=== PATIENT | female | born 2000 | race Two or more races ===

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

== ENCOUNTER 2019-12-03 06:00 | Inpatient (IN) | payer OTHER ==
[2019-12-03] MEDS ORDERED: OXYTOCIN 10 UNIT/ML 1 ML VIAL IM PRN (06:26)
[2019-12-03] MEDS ORDERED: CARBOPROST TROMETHAMINE 250 MCG/ML 1 ML AMP IM PRN (06:26)
[2019-12-03] MEDS ORDERED: METHYLERGONOVINE 0.2 MG/ML 1 ML AMP IM PRN (06:26)
[2019-12-03] MEDS ORDERED: TERBUTALINE 1 MG/ML VIAL SQ PRN (06:26)
[2019-12-03] MEDS ORDERED: LIDOCAINE 0.5% (PF) 5 MG/ML (50 ML SDV) SQ PRN (06:26)
[2019-12-03] MEDS ORDERED: OXYTOCIN 30 UNITS/500 ML NS 30 UNIT in SALINE 1 500ML.BAG IV SCH (06:30)
[2019-12-03] MEDS: LACTATED RINGERS 1,000 ML IV SCH ×3 (06:41→13:09)
[2019-12-03 06:51] LABS: WBC 10.4 k/uL (4.0-11.0)
[2019-12-03 06:52] LABS: Basophils % (A) 0 %; Eosinophils # (A) 0.3 k/uL (0-0.7); Eosinophils % (A) 3 %; HCT 37.3 % (34.0-46.0); HGB 12.4 gm/dL (11.4-16.0); Lymphocytes # (A) 2.1 k/uL (1.0-4.8); Lymphocytes % (A) 20 %; MCHC 33.4 g/dL (31.0-37.0); MCV 86.9 fL (80.0-100.0); Mean Platelet Volume 7.2; Monocytes % (A) 10 %; Neutrophils # (A) 6.7 k/uL (1.3-7.7); Neutrophils % (A) 65 %; Platelet Count 335 k/uL (150-450); RBC 4.29 m/uL (3.80-5.40); RDW 12.9 % (11.5-15.5)
[2019-12-03] MEDS ORDERED: BUTORPHANOL 1 MG/ML 1 ML VIAL IV PRN (09:54)
[2019-12-03] MEDS ORDERED: ROPIVACAINE 100 MG, fentaNYL (PF) 200 MCG in SODIUM CHLORIDE 0.9% 76 ML EPIDURAL ONE (12:54)
--- NOTE | 2019-12-03 13:08 | P.HPOB ---
History of Present Illness H&P Date: 12/03/19 Chief Complaint: IUP at 39 1/7 weeks, dilation of the renal pelvis, This is a 19-year-old 1 para 0 that presented to labor and delivery at 39 and one sevenths weeks for planned elective induction of labor. Patient has been receiving routine care with myself which is been essentially uncomplicated. On 20 week ultrasound dilation of the renal pelvis was noted. Growth sounds were completed to 4 weeks along with amniotic fluid index evaluation. Patient has been stable with good growth noted on the fetus, stable growth of the dilation. Review of Systems Constitutional: Denies fatigue, Denies fever Ears, nose, mouth and throat: Denies headache Cardiovascular: Reports leg edema Respiratory: Denies dyspnea Gastrointestinal: Denies diarrhea, Denies nausea, Denies vomiting Genitourinary: Reports Past Medical History Past Medical History: Asthma Additional Past Medical History / Comment(s): IBS History of Any Multi-Drug Resistant Organisms: None Reported Past Surgical History: No Surgical Hx Reported Past Anesthesia/Blood Transfusion Reactions: No Reported Reaction Past Psychological History: Anxiety Smoking Status: Never smoker Past Alcohol Use History: None Reported Past Drug Use History: None Reported - Past Family History Father Family Medical History: Diabetes Mellitus Medications and Allergies Home Medications Medication Instructions Recorded Confirmed Type No Known Home Medications 12/03/19 12/03/19 History Allergies Allergy/AdvReac Type Severity Reaction Status Date / Time No Known Allergies Allergy Verified 12/03/19 06:25 Exam Osteopathic Statement: *. No significant issues noted on an osteopathic structural exam other than those noted in the History and Physical/Consult. 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 Amniotomy is performed and clear fluid was obtained. heart tones returned be category 1 and she oral irregularly. Results Result Diagrams: 12/03/19 06:45 Assessment and Plan (1) Term Current Visit: Yes Status: Acute Code(s): Z34.90 - ENCNTR FOR SUPRVSN OF NORMAL , UNSP, UNSP TRIMESTER SNOMED Code(s): 18911646 (2) Dilation of renal pelvis of fetus Current Visit: Yes Status: Acute Code(s): VCX9708 - SNOMED Code(s): 801759334 Plan: Patient is admitted to labor and delivery and Pitocin induction of labor is begun. Patient is offered Stadol versus epidural for analgesia throughout labor. Patient states understanding and will ask when appropriate. Anticipate spontaneous vaginal delivery.
[2019-12-03] MEDS ORDERED: diphenhydrAMINE 25 MG CAP PO PRN (14:01)
[2019-12-03] MEDS ORDERED: HYDROCORTISONE 2.5% RECTAL CREAM 30 GM TUBE RECTAL PRN (14:01)
[2019-12-03] MEDS ORDERED: HYDROcodone/APAP 5-325MG 1 EACH TAB PO PRN (14:01)
[2019-12-03] MEDS ORDERED: diphenhydrAMINE 50 MG/ML 1 ML VIAL IVP PRN ×2 (14:01)
[2019-12-03] MEDS ORDERED: ACETAMINOPHEN TAB 325 MG TAB PO PRN (14:01)
[2019-12-03] MEDS ORDERED: ZOLPIDEM 5 MG TAB PO PRN (14:01)
[2019-12-03] MEDS ORDERED: BENZOCAINE/MENTHOL SPRAY 1 GM/SPRAY AEROSOL TOPICAL PRN (14:01)
[2019-12-03] MEDS ORDERED: LANOLIN CREAM 5 GM TUBE TOPICAL PRN (14:01)
[2019-12-03] MEDS ORDERED: SIMETHICONE 80 MG CHEWABLE PO PRN (14:01)
[2019-12-03] MEDS ORDERED: diphenhydrAMINE 50 MG CAP PO PRN (14:01)
--- NOTE | 2019-12-03 14:05 | P.PROBDLV ---
Vaginal Delivery Note - . Vaginal Delivery Note: This is a 19-year-old 1 para 0 that presented to labor and delivery at 39 and one sevenths weeks for elective induction of labor. Patient had receiving routine care which has been complicated by bilateral dilation of the renal pelvis, . Patient was admitted to labor and delivery Pitocin induction of labor was begun. Amniotomy was performed once regular contractions were noted. Clear fluid was obtained on amniotomy. Patient became uncomfort able requested epidural placement. Epidural was placed without difficulty by the anesthesia department. Patient quickly progressed to complete began pushing and had a normal spontaneous vaginal delivery of a viable female at 1348, weight of 6 lbs. 13 oz. and Apgars of 9 and 9 at one and 5 minutes respectively. After two-minute delayed the umbilical cord was doubly clamped and cut and inf ant was handed off to the maternal abdomen. The placenta was then delivered spontaneously intact with three-vessel cord being noted. On inspection the patient's vaginal vault a first-degree vaginal laceration was noted. This was repaired in the usual fashion with 3-0 Rapide. The uterus is noted to be firm and below the umbilicus. The bladder was then drained via red rubber catheter for approximate 100 mL of clear yellow urine. Patient and tolerated delivery well and are resting comfortably. All counts are noted correct 2. Estimated blood loss 200 mL.
[2019-12-03] MEDS ORDERED: OXYTOCIN 20 UNITS/1000 ML NS 1,000 ML IV SCH (14:15)
[2019-12-03] MEDS: SENNOSIDES-DOCUSATE SODIUM 1 EACH TAB PO SCH (21:34)
[2019-12-03] MEDS: IBUPROFEN 600 MG TAB PO PRN (22:49)
[2019-12-04 08:45] LABS: Basophils % (A) 0 %; Eosinophils # (A) 0.3 k/uL (0-0.7); Eosinophils % (A) 2 %; HCT 34.1 % (34.0-46.0); HGB 11.4 gm/dL (11.4-16.0); Lymphocytes # (A) 2.1 k/uL (1.0-4.8); Lymphocytes % (A) 16 %; MCH 29.4 pg (25.0-35.0); MCHC 33.3 g/dL (31.0-37.0); MCV 88.3 fL (80.0-100.0); Mean Platelet Volume 7.1; Monocytes # (A) 1.1 k/uL (0-1.0); Monocytes % (A) 8 %; Neutrophils # (A) 9.7 k/uL (1.3-7.7); Neutrophils % (A) 73 %; Platelet Count 240 k/uL (150-450); RBC 3.86 m/uL (3.80-5.40); RDW 13.4 % (11.5-15.5); WBC 13.4 k/uL (4.0-11.0)
[2019-12-04] MEDS: SENNOSIDES-DOCUSATE SODIUM 1 EACH TAB PO SCH ×2 (08:53→20:35)
--- NOTE | 2019-12-04 09:19 | P.DS ---
Providers Date of admission: 12/03/19 06:16 Expected date of discharge: 12/04/19 Attending physician: Anjana Joshi Primary care physician: Stated None - Discharge Diagnosis(es) (1) Term Current Visit: Yes Status: Acute (2) Dilation of renal pelvis of fetus Current Visit: Yes Status: Acute (3) Status post vaginal delivery Current Visit: Yes Status: Acute Hospital Course: This is a pleasant 19-year-old 1 para 0 that presented to labor and delivery at 39 and one sevenths weeks for elective induction of labor. Patient been receiving routine care with myself, only complication was noted dilation of the renal pelvis bilaterally. Growth/amniotic fluid index was followed closely throughout the . Patient was admitted to labor and delivery and Pitocin induction of labor was begun. Once patient was noted to have regular contractions amniotomy was performed and clear fluid was obtained. Patient progressed through labor eventually becoming uncomfortable and requesting epidural placement. Epidural was placed without difficulty by the anesthesia department. Patient progressed quickly to complete began pushing and had a normal spontaneous vaginal delivery of a viable female at 1348, weight of 6 lbs. 13 oz. and Apgars of 9 and 9 at one and 5 minutes respectfully. Patient did sustain a first-degree vaginal laceration which was repaired in the usual fashion with 3-0 Rapide. Patient's course has been uneventful. On this day #1 she is ambulating and voiding without difficulty. She is tolerating a regular diet without nausea or vomiting. She states her pain is well-controlled with oral ibuprofen. She is breast and bottle feeding at this time. Patient Condition at Discharge: Good Plan - Discharge Summary New Discharge Prescriptions: No Action No Known Home Medications Discharge Medication List No Known Home Medications 12/03/19 [History] Follow up Appointment(s)/Referral(s): Anjana Joshi DO [Doctor of Osteopathic Medicine] - 4 Weeks Patient Instructions/Handouts: Vaginal Delivery (GEN), Vaginal Delivery (DC) Activity/Diet/Wound Care/Special Instructions: Patient can expect. Like bleeding for 4-6 weeks after delivery. Oral ibuprofen 600 mg as needed for discomfort. Patient is to follow-up in 4 weeks for routine check. She is urged to call the office if she has any concerns prior to this for week appointment. Discharge Disposition: HOME SELF-CARE
[2019-12-04] MEDS: IBUPROFEN 600 MG TAB PO PRN (16:03)
[2019-12-05 08:36] VITALS: BP 102/67; PULSE 73; RESP 14; TEMP 97.9
[2019-12-05] MEDS: SENNOSIDES-DOCUSATE SODIUM 1 EACH TAB PO SCH (08:39)
== END 2019-12-05 13:00 | disposition home or self-care (01) | DRG 807 ==
LOC: 4FBP 06:16
PROVIDERS: ADMIT Obstetrics & Gynecology Obstetrics; ATTEND Obstetrics & Gynecology Obstetrics
PROC: 10E0XZZ Delivery of Products of Conception, External Approach (ICD-10-PCS; principal; 2019-12-03)
PROC: 3E033VJ Introduction of Other Hormone into Peripheral Vein, Percutaneous Approach (ICD-10-PCS; 2019-12-03)
PROC: 10907ZC Drainage of Amniotic Fluid, Therapeutic from Products of Conception, Via Natural or Artificial Opening (ICD-10-PCS; 2019-12-03)
PROC: 0HQ9XZZ Repair Perineum Skin, External Approach (ICD-10-PCS; 2019-12-03)
PROC: 3E0R3BZ Introduction of Anesthetic Agent into Spinal Canal, Percutaneous Approach (ICD-10-PCS; 2019-12-03)
DX: O35.8XX0 Maternal care for other (suspected) fetal abnormality and damage, not applicable or unspecified (principal); Z37.0 Single live birth; O99.344 Other mental disorders complicating childbirth; K58.9 Irritable bowel syndrome, unspecified; O99.62 Diseases of the digestive system complicating childbirth; O99.52 Diseases of the respiratory system complicating childbirth; O70.0 First degree perineal laceration during delivery; J45.909 Unspecified asthma, uncomplicated; F41.9 Anxiety disorder, unspecified; Z3A.39 39 weeks gestation of pregnancy; Z83.3 Family history of diabetes mellitus
CPT/HCPCS: 85025; 86850; 86900; 86901

== ENCOUNTER 2022-09-27 01:24 | Inpatient (IN) | payer OTHER ==
[2022-09-27] MEDS ORDERED: TERBUTALINE 1 MG/ML VIAL SQ PRN (01:53)
[2022-09-27] MEDS ORDERED: miSOPROStoL 200 MCG TAB PO PRN (01:53)
[2022-09-27] MEDS ORDERED: LIDOCAINE 0.5% (PF) 5 MG/ML (50 ML SDV) SQ PRN (01:53)
[2022-09-27] MEDS ORDERED: METHYLERGONOVINE 0.2 MG/ML 1 ML AMP IM PRN (01:53)
[2022-09-27] MEDS ORDERED: CARBOPROST TROMETHAMINE 250 MCG/ML 1 ML AMP IM PRN (01:53)
[2022-09-27] MEDS ORDERED: OXYTOCIN 10 UNIT/ML 1 ML VIAL IM PRN (01:53)
[2022-09-27] MEDS ORDERED: TRANEXAMIC 1,000 MG/100ML-NACL 1,000 MG in EMPTY BAG 1 BAG IV PRN (01:53)
[2022-09-27] MEDS: LACTATED RINGERS 1,000 ML IV SCH ×2 (02:00→03:00)
[2022-09-27] MEDS ORDERED: OXYTOCIN 30 UNITS/500 ML NS 30 UNIT in SALINE 1 500ML.BAG IV SCH ×2 (02:00→05:00)
[2022-09-27 02:37] LABS: Basophils % (A) 0 %; Eosinophils # (A) 0.1 k/uL (0-0.7); Eosinophils % (A) 1 %; HCT 37.3 % (34.0-46.0); HGB 12.4 gm/dL (11.4-16.0); Lymphocytes # (A) 1.9 k/uL (1.0-4.8); Lymphocytes % (A) 19 %; MCH 29.3 pg (25.0-35.0); MCHC 33.2 g/dL (31.0-37.0); MCV 88.5 fL (80.0-100.0); Monocytes # (A) 0.8 k/uL (0-1.0); Monocytes % (A) 8 %; Neutrophils # (A) 7.1 k/uL (1.3-7.7); Neutrophils % (A) 70 %; Platelet Count 298 k/uL (150-450); RBC 4.22 m/uL (3.80-5.40); RDW 13.9 % (11.5-15.5); WBC 10.2 k/uL (3.8-10.6)
[2022-09-27] MEDS ORDERED: SODIUM CHLORIDE 0.9% 100 ML BAG ONE (02:45)
[2022-09-27] MEDS ORDERED: fentaNYL (PF) 50 MCG/ML 5 ML AMP ONE (02:45)
[2022-09-27] MEDS ORDERED: ROPIVACAINE 5 MG/ML 20 ML AMPULE ONE (02:45)
[2022-09-27] MEDS ORDERED: diphenhydrAMINE 25 MG CAP PO PRN (04:50)
[2022-09-27] MEDS ORDERED: LANOLIN CREAM 5 GM TUBE TOPICAL PRN (04:50)
[2022-09-27] MEDS ORDERED: BENZOCAINE/MENTHOL SPRAY 1 GM/SPRAY AEROSOL TOPICAL PRN (04:50)
[2022-09-27] MEDS ORDERED: diphenhydrAMINE 50 MG/ML 1 ML VIAL IVP PRN ×2 (04:50)
[2022-09-27] MEDS ORDERED: diphenhydrAMINE 50 MG CAP PO PRN (04:50)
[2022-09-27] MEDS ORDERED: ACETAMINOPHEN TAB 325 MG TAB PO PRN (04:50)
[2022-09-27] MEDS ORDERED: ZOLPIDEM 5 MG TAB PO PRN (04:50)
[2022-09-27] MEDS ORDERED: SIMETHICONE 80 MG CHEWABLE PO PRN (04:50)
[2022-09-27] MEDS ORDERED: HYDROCORTISONE 2.5% RECTAL CREAM 30 GM TUBE RECTAL PRN (04:50)
--- NOTE | 2022-09-27 04:53 | P.PROBDLV ---
Vaginal Delivery Note - . Vaginal Delivery Note: This is a 22-year-old 2 para 1 at 39 0/7 weeks that presented to labor and delivery with complaints of regular painful contractions. Patient was noted to be 6 cm and admitted to labor and delivery. Patient quickly requested epidural placement. Epidural was placed without difficulty by the anesthesia department. Patient underwent amniotomy and clear fluid was obtained. Patient made good progress were complete and began pushing. Patient had a normal spon taneous vaginal delivery of a viable female infant at 436, weight of 7 lbs. 9 oz. Centimeters cry was noted at . After a two-minute delayed the umbilical cord was doubly clamped and cut. Cord blood was then taken. Placenta was delivered spontaneously intact with three- vessel cord being noted. No vaginal lacerations were appreciated on inspection. Uterus is noted to be firm and below the umbilicus. 100 mL estimated blood loss was noted. All counts are correct 2. Patient and infant tolerated delivery well and are resting comfortably.
--- NOTE | 2022-09-27 04:54 | P.HPOB ---
History of Present Illness H&P Date: 09/27/22 Chief Complaint: IUP at 39 0/7, active labor 22-year-old at 39-0/7 weeks that presents to labor and delivery with complaints of regular painful contractions. Patient was noted to be 6 cm on admission. Patient denied loss of fluid or vaginal bleeding. She did note good movement. Patient's been receiving routine care with myself which is been essentially uncomplicated. Patient has been have a history of an alpha-1 antitrypsin deficiency. Her previous daughter has the same condition. Patient noted after delivery of her first daughter she had jaundice that was persistent. Patient was then transferred to [facility] a workup for alpha anti-trypsin was completed. Patient does have an outpatient physician for follow-up. Most likely this infant will have same deficiency. On bloodwork this patient is a blood type of O+, rubella status immune, hepatitis B surface antigen negative, HIV negative, group beta strep culture negative. Review of Systems Constitutional: Denies chills, Denies fatigue, Denies fever Ears, nose, mouth and throat: Denies headache Cardiovascular: Denies leg edema Respiratory: Denies dyspnea Gastrointestinal: Denies constipation, Denies diarrhea, Denies nausea, Denies vomiting Genitourinary: Reports Past Medical History Past Medical History: Asthma Additional Past Medical History / Comment(s): IBS, Alpha 1 antitrypsin deficiency carrier, restless legs History of Any Multi-Drug Resistant Organisms: None Reported Past Surgical History: No Surgical Hx Reported Past Anesthesia/Blood Transfusion Reactions: No Reported Reaction Past Psychological History: Anxiety Additional Psychological History / Comment(s): Post Depression Smoking Status: Never smoker Past Alcohol Use History: None Reported Past Drug Use History: None Reported - Past Family History Father Family Medical History: Diabetes Mellitus Medications and Allergies Home Medications Medication Instructions Recorded Confirmed Type Iron 18 mg PO 09/27/22 History Vit No.179/Iron/Folic 1 each PO 09/27/22 History [ Tablet] Allergies Allergy/AdvReac Type Severity Reaction Status Date / Time No Known Allergies Allergy Verified 09/27/22 01:27 Exam Osteopathic Statement: *. No significant issues noted on an osteopathic structural exam other than those noted in the History and Physical/Consult. Vital Signs Temp Pulse Resp BP Pulse Ox 09/27/22 01:52 97.4 F L 115 H 16 121/78 96 Intake and Output 09/26/22 09/26/22 09/27/22 14:59 22:59 06:59 Other: Weight 60.328 kg Targeted physical exam is performed in this date and barley steeper a well-nourished well-developed female in no acute distress, epidural was placed prior to my arrival. Breathing is noted to be nonlabored, heart has a regular rate and rhythm, abdomen is gravid, heart tones are noted to be category 1 contractions are not graphing well, on cervical exam she is 9/100/-1 station. Amniotomy is performed and clear fluid was obtained. Results Result Diagrams: 09/27/22 01:50 Assessment and Plan (1) Term Current Visit: No Status: Acute Code(s): Z34.90 - ENCNTR FOR SUPRVSN OF NORMAL , UNSP, UNSP TRIMESTER SNOMED Code(s): 44359470 Plan: 22-year-old at 39 weeks of gestation presents in active labor. Patient was admitted to labor and delivery and epidural was placed by the anesthesia department. Patient is comfortable with the epidural amniotomy was performed and clear fluid was obtained. Anticipate spontaneous vaginal delivery.
[2022-09-27] MEDS: IBUPROFEN 600 MG TAB PO SCH ×4 (05:20→20:18)
[2022-09-27] MEDS: SENNOSIDES-DOCUSATE SODIUM 1 EACH TAB PO SCH ×2 (08:07→20:19)
[2022-09-28] MEDS: IBUPROFEN 600 MG TAB PO SCH ×3 (07:59→19:55)
[2022-09-28] MEDS: SENNOSIDES-DOCUSATE SODIUM 1 EACH TAB PO SCH ×2 (07:59→19:55)
--- NOTE | 2022-09-28 09:51 | P.DS ---
Providers Date of admission: 09/27/22 01:40 Expected date of discharge: 09/28/22 Attending physician: Anjana Joshi Primary care physician: Stated None - Discharge Diagnosis(es) (1) Term Current Visit: No Status: Acute (2) Status post vaginal delivery Current Visit: No Status: Acute Hospital Course: This is a 22-year-old G2 now P2 that presented to labor and delivery at 39-0/7 weeks with complaints of regular painful contractions. Patient was noted to be 6 cm on admission to labor and delivery. Patient did request epidural soon after admission. Epidural was placed without difficulty by the anesthesia department. Patient underwent amniotomy and clear fluid was obtained. Patient made good progress for complete began pushing. Of note contractions were noted to be spaced after epidural placement therefore Pitocin augmentation of labor was begun. Patient was noted to be completely dilated began pushing and had a normal spontaneous vaginal delivery of a viable female infant at 436 on 09/27 with a weight of 7 lbs. 9 oz. No vaginal lacerations were appreciated after delivery. Patient's course has been uneventful. On this day #1 she is ambulating and voiding without difficulty. She is tolerating a regular diet without nausea or vomiting. She states her pain is well- controlled. She denies concerns. She would like discharge home if is discharged with her. Patient Condition at Discharge: Good Plan - Discharge Summary New Discharge Prescriptions: No Action Vit No.179/Iron/Folic [ Tablet] 1 each PO Iron 18 mg PO Discharge Medication List Iron 18 mg PO 09/27/22 [History] Vit No.179/Iron/Folic [ Tablet] 1 each PO 09/27/22 [History] Follow up Appointment(s)/Referral(s): Anjana Joshi DO [Doctor of Osteopathic Medicine] - 4 Weeks Patient Instructions/Handouts: Vaginal Delivery (GEN), Vaginal Delivery (DC) Activity/Diet/Wound Care/Special Instructions: No tub baths or intercourse until 6 weeks post . [id number] IV Profen as needed for pain. Patient is to call the office make a routine postpa rtum check for 4 weeks . Should she have any concerns prior to this appointment she is urged to call the office. Discharge Disposition: HOME SELF-CARE
[2022-09-28 16:52] VITALS: RESP 16
[2022-09-29] MEDS: IBUPROFEN 600 MG TAB PO SCH ×3 (06:34→17:55)
[2022-09-29] MEDS: SENNOSIDES-DOCUSATE SODIUM 1 EACH TAB PO SCH (07:58)
--- NOTE | 2022-09-29 11:27 | P.PNOBGVD ---
Subjective - Subjective Principal diagnosis: day #2 Interval history: Patient is doing well , she opted to stay an additional day secondary to her daughter being treated for jaundice. She was under the bili lights overnight and is awaiting a redraw. Patient will be working in overnight and hopefully go home tomorrow with her daughter. She denies any concerns today Patient reports: Reports appetite normal, Reports voiding normally, Reports pain well controlled, Reports ambulating normally [place]: doing well Objective - Latest Vital Signs Latest vital signs: Vital Signs Temp Pulse Resp BP Pulse Ox 09/29/22 07:57 98.3 F 77 16 110/78 97 09/29/22 00:20 97.4 F L 69 16 109/76 97 09/28/22 16:00 97.7 F 79 16 120/75 - Exam Extremities: Present: normal. Absent: edema Abdomen: Present: normal appearance, soft Uterus: Present: normal, firm Assessment and Plan (1) Term Current Visit: No Status: Acute Code(s): Z34.90 - ENCNTR FOR SUPRVSN OF NORMAL , UNSP, UNSP TRIMESTER SNOMED Code(s): 62263753 (2) Status post vaginal delivery Current Visit: No Status: Acute Code(s): [id number] - SNOMED Code(s): 302795777 Plan: 22-year-old G2 now P2 status post spontaneous vaginal delivery. Patient is doing well . She was considering discharge yesterday but stayed secondary to 's continued admission. Patient understands she will be discharged later this afternoon. She is able to board and await jaundice levels. Routine instructions are reviewed. Questions were answered. We'll follow up in 4 weeks for routine check.
[2022-09-29 16:50] VITALS: BP 112/75; PULSE 70; TEMP 98.5
== END 2022-09-29 18:00 | disposition home or self-care (01) | DRG 560 ==
LOC: FBPOP 01:24 → 4FBP 01:40
PROVIDERS: ADMIT Obstetrics & Gynecology Obstetrics; ATTEND Obstetrics & Gynecology Obstetrics
PROC: 10E0XZZ Delivery of Products of Conception, External Approach (ICD-10-PCS; principal; 2022-09-27)
PROC: 10907ZC Drainage of Amniotic Fluid, Therapeutic from Products of Conception, Via Natural or Artificial Opening (ICD-10-PCS; 2022-09-27)
PROC: 3E033VJ Introduction of Other Hormone into Peripheral Vein, Percutaneous Approach (ICD-10-PCS; 2022-09-27)
DX: O62.3 Precipitate labor (principal); O99.52 Diseases of the respiratory system complicating childbirth; G25.81 Restless legs syndrome; J45.909 Unspecified asthma, uncomplicated; F41.9 Anxiety disorder, unspecified; O99.354 Diseases of the nervous system complicating childbirth; O99.344 Other mental disorders complicating childbirth; Z37.0 Single live birth; Z3A.39 39 weeks gestation of pregnancy; Z14.8 Genetic carrier of other disease
CPT/HCPCS: 85025; 86850; 86900; 86901; 99213